=== PATIENT | male | born 1990 | race Caucasian/White ===

== ENCOUNTER 2021-01-30 19:04 | Emergency (ER) | payer SELFPAY ==
--- NOTE | 2021-01-30 19:28 | EDM.PDOC ---
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 He has pain to the right wrist forearm and shoulder. Good range of motion. Pain is not made better or worse with anything. Not take any medicine for the pain before arrival. Pain is achy in nature. He has no other associated symptoms or complaints. right arm Pain Score (Numeric/FACES): 6 - Related Data Allergies Allergy/AdvReac Type Severity Reaction Status Date / Time amoxicillin [From Augmentin] Allergy Stomach Verified 01/30/21 19:23 Ache clavulanic acid Allergy Stomach Verified 01/30/21 19:23 [From Augmentin] Ache erythromycin base Allergy Stomach Verified 01/30/21 19:23 Upset Home Meds: Home Meds . [No Known Home Meds] 01/30/21 [History] Review of Systems - Review of Systems Review Of Systems: See Below Constitutional: Reports: No Symptoms Eyes: Reports: No Symptoms Ears: Reports: No Symptoms Nose: Reports: No Symptoms Mouth/Throat: Reports: No Symptoms Respiratory: Reports: No Symptoms Cardiovascular: Reports: No Symptoms GI/Abdominal: Reports: No Symptoms Genitourinary: Reports: No Symptoms Musculoskeletal: Reports: Arm Pain Skin: Reports: No Symptoms Neurological: Reports: No Symptoms Psychiatric: Reports: No Symptoms ED EXAM, GENERAL - Physical Exam Exam: See Below Exam Limited By: No Limitations General Appearance: Alert, WD/WN, No Apparent Distress Eye Exam: Bilateral Eye: EOMI, PERRL Respiratory/Chest: No Respiratory Distress, Lungs Clear, Normal Breath Sounds Cardiovascular: Normal Peripheral Pulses, Regular Rate, Rhythm Peripheral Pulses: 2+: Radial (L), Radial (R) GI/Abdominal: Normal Bowel Sounds, Soft, Non-Tender Extremities: Normal Inspection, Normal Range of Motion, Non-Tender Neurological: Alert, Oriented, Normal Cognition, Normal Gait Course - Vital Signs Last Recorded V/S: Last Vital Signs Temp 97.5 F 01/30/21 19:20 Pulse 69 01/30/21 19:20 Resp 18 01/30/21 19:20 BP 145/88 H 01/30/21 19:20 Pulse Ox 97 01/30/21 19:20 - Re-Assessments/Exams Free Text/Narrative Re-Assessment/Exam: 01/30/21 20:24 Patient x-rays are negative. Patient will be discharged home. Departure - Departure Time of Disposition: 20:26 Disposition: Home, Self-Care 01 Condition: Good Clinical Impression: Arm pain, Shoulder sprain - Discharge Information *PRESCRIPTION DRUG MONITORING PROGRAM REVIEWED*: Not Applicable *COPY OF PRESCRIPTION DRUG MONITORING REPORT IN PATIENT MANPREET: Not Applicable Instructions: Shoulder Sprain Referrals: PCP,Not In Area [Primary Care Provider] - Forms: ED Department Discharge Additional Instructions: The following information is given to patients seen in the emergency department who are being discharged to home. This information is to outline your options for follow-up care. We provide all patients seen in our emergency department with a follow-up referral. The need for follow-up, as well as the timing and circumstances, are variable depending upon the specifics of your emergency department visit. If you don't have a primary care physician on staff, we will provide you with a referral. We always advise you to contact your personal physician following an emergency department visit to inform them of the circumstance of the visit and for follow-up with them and/or the need for any referrals to a consulting specialist. The emergency department will also refer you to a specialist when appropriate. This referral assures that you have the opportunity for follow-up care with a specialist. All of these measure are taken in an effort to provide you with optimal care, which includes your follow-up. Under all circumstances we always encourage you to contact your private physician who remains a resource for coordinating your care. When calling for follow-up care, please make the office aware that this follow-up is from your recent emergency room visit. If for any reason you are refused follow-up, please contact the [facility] at and asked to speak to the emergency department charge nurse. Please follow up with your primary care physician. If you do not have a primary care physician, see below: [facility] [address] [place] [id number] My [facility] [address] [place] [address] You were seen today for arm injury while at work. We did x-rays not show any fractures. You may have some pain in the morning when you wake up as you will be laying still in your arm you get stiff. Please try to take Motrin or Tylenol for this pain. If you have any other concerning signs or symptoms you can return to the ED otherwise follow-up with your primary care physician. Sepsis Event Note (ED) - Focused Exam Vital Signs: Vital Signs Temp Pulse Resp BP Pulse Ox 01/30/21 19:20 97.5 F 69 18 145/88 H 97 - Assessment/Plan Plan: Patient is a 30-year-old male who was brought in today for right arm pain after falling at work. On exam patient has no noticeable bruising or deformities. Patient has good range of motion. Will obtain basic x-rays and likely discharge home.
--- NOTE | 2021-01-30 20:10 | CR ---
INDICATION: Forearm injury from fall onto arm TECHNIQUE: Forearm radiograph 2 views right COMPARISON: None FINDINGS: Bone: No acute fractures or aggressive bone lesions are identified. Joint: The visualized radiocarpal and elbow joints are unremarkable, but the elbow joint is not profiled. If there is pain or tenderness in this region, dedicated views of the elbow are recommended. Soft tissue: Unremarkable. No radiopaque foreign bodies are seen. IMPRESSION: 1. No acute osseous injuries or abnormalities are noted. Dictated by: Ty Howell MD @ 01/30/2021 20:09:57 (Electronically Signed)
--- NOTE | 2021-01-30 20:13 | CR ---
INDICATION: Shoulder injury from fall onto arm TECHNIQUE: Shoulder radiograph 3 views right COMPARISON: None FINDINGS: The sensitivity and specificity of the exam are moderately limited by the patient`s body habitus. Bone: No acute fractures or aggressive bone lesions are identified. Joint: The glenohumeral joint is unremarkable. The acromioclavicular joint is unremarkable. Soft tissue: Unremarkable. The visualized hemithorax is unremarkable in appearance. No radiopaque foreign bodies are seen. IMPRESSION: 1. No acute osseous injuries or abnormalities are noted. Dictated by: Ty Howell MD @ 01/30/2021 20:10:27 (Electronically Signed)
== END 2021-01-30 20:57 | disposition home or self-care (01) ==
LOC: MW.ED 19:04
DX: S43.401A Unspecified sprain of right shoulder joint, initial encounter (principal); Z88.0 Allergy status to penicillin; Z88.1 Allergy status to other antibiotic agents; W01.0XXA Fall on same level from slipping, tripping and stumbling without subsequent striking against object, initial encounter; Y92.65 Oil rig as the place of occurrence of the external cause; Y99.0 Civilian activity done for income or pay
CPT/HCPCS: 73030-26-RT; 73030-RT; 73090-26-RT; 73090-RT; 99283-25